=== PATIENT | male | born 1985 | race Caucasian/White ===

== ENCOUNTER 2018-04-15 12:59 | Observation (INO) | payer BC ==
[2018-04-15] MEDS ORDERED: SODIUM CHLORIDE 0.9% 1,000 ML IV STA ×2 (13:25)
[2018-04-15] MEDS ORDERED: ASPIRIN 81 MG PO STA (13:25)
--- NOTE | 2018-04-15 13:28 | ED ---
Chest Pain HPI - General Chief Complaint: Chest Pain Stated Complaint: stroke symptoms Time Seen by Provider: 04/15/18 13:09 Source: patient, RN notes reviewed, old records reviewed Mode of arrival: ambulatory Limitations: no limitations - History of Present Illness Initial Comments: Patient is a 32-year-old male presents emergency stay with chief complaint of intermittent chest pain for the past 3 days. Patient states that he will have the episode chest pain occasionally radiating towards left arm and up towards his head. He states today while he was driving near he started to have some pain within his jaw. Patient states that he felt like his jaw was "fluttering" . Patient states that he has had no previous cardiac history. He does have a history of high blood pressure and hyperlipidemia. He does have a family history of heart disease and is a smoker. Patient states that he has had no chest pain after arriving to emergency department. He does complain of some paresthesias within the left arm. - Related Data Home Medications Medication Instructions Recorded Confirmed Albuterol Sulfate [Proair Hfa] 1 - 2 puff INHALATION RT-Q6H PRN 04/15/18 Atorvastatin [Lipitor] 40 mg PO DAILY 04/15/18 04/15/18 Chlorthalidone 50 mg PO DAILY 04/15/18 04/15/18 Metoprolol Succinate [Toprol XL] 200 mg PO DAILY 04/15/18 04/15/18 Potassium Chloride ER [K-Dur 20] 20 meq PO BID 04/15/18 04/15/18 Allergies Allergy/AdvReac Type Severity Reaction Status Date / Time No Known Allergies Allergy Verified 04/15/18 13:31 Review of Systems ROS Statement: Those systems with pertinent positive or pertinent negative responses have been documented in the HPI. ROS Other: All systems not noted in ROS Statement are negative. EKG Findings - EKG Comments: EKG Findings:: EKG has normal sinus rhythm prolonged QT. EKG noted. Ventricular rate 87 bpm. MS interval is 170 ms. QRS duration 102 ms. QT QTc is 514/618 ms. No evidence of ST elevation or T-wave inversions. No evidence of atrial or ventricular arrhythmias. Past Medical History Past Medical History: Hypertension History of Any Multi-Drug Resistant Organisms: None Reported Past Surgical History: Hernia Repair Additional Past Surgical History / Comment(s): eye surg Past Psychological History: No Psychological Hx Reported Smoking Status: Current every day smoker Past Alcohol Use History: Occasional Past Drug Use History: None Reported General Exam - General Exam Comments Initial Comments: 32-year-old male. Alert and oriented. No significant distress. Limitations: no limitations General appearance: alert, in no apparent distress Head exam: Present: atraumatic, normocephalic, normal inspection Eye exam: Present: normal appearance, PERRL, EOMI. Absent: scleral icterus, conjunctival injection, periorbital swelling ENT exam: Present: normal exam, mucous membranes moist Neck exam: Present: normal inspection. Absent: tenderness, meningismus, lymphadenopathy Respiratory exam: Present: normal lung sounds bilaterally. Absent: respiratory distress, wheezes, rales, rhonchi, stridor Cardiovascular Exam: Present: regular rate, normal rhythm, normal heart sounds. Absent: systolic murmur, diastolic murmur, rubs, gallop, clicks GI/Abdominal exam: Present: soft, normal bowel sounds. Absent: distended, tenderness, guarding, rebound, rigid Extremities exam: Present: normal inspection, full ROM, normal capillary refill. Absent: tenderness, pedal edema, joint swelling, calf tenderness Neurological exam: Present: alert, oriented X3, CN II-XII intact Expanded Patient oriented to: Present: person, place, time Speech: Present: fluid speech Cranial nerves: EOM's Intact: Normal, Facial Sensation: Normal Cerebellar function: Finger to Nose: Normal Upper motor neuron: Pronator Drift: Normal Sensory exam: Upper Extremity Light Touch: Normal, Lower Extremity Light Touch: Normal Motor strength exam: RUE: 5, LUE: 5, RLE: 5, LLE: 5 Eye Response: (4) open spontaneously Motor Response: (6) obeys commands Verbal Response: (5) oriented [place] Total: 15 Psychiatric exam: Present: normal affect, normal mood Skin exam: Present: warm, dry, intact, normal color. 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 He states that he also feels like he's had some episodes of confusion. Patient reports he has no significant headache. This time is nonfocal or lateralizing neurological findings. He complains that his chest pain had resolved upon arrival. His EKG showed no significant changes since a prolonged QT. Laboratory data show evidence of hypokalemia potassium of 2.7. Reports he's had that in the past. Patient was given 40 mg by mouth as well as started on IV potassium. Did give the Patient a by mouth aspirin at this time. Initial troponin is negative. I discussed that would like to admit the Patient for further evaluation regards to the chest pain as well as the episodes of "confusion. We did do a CT of his brain which was negative for any acute process. Patient at this time will be admitted to Dr. Doshi's group. Disposition Clinical Impression: Hypokalemia, Chest pain Disposition: HOME SELF-CARE Condition: Good Is patient prescribed a controlled substance at d/c from ED?: No Referrals: Giovanni Arita DO [Primary Care Provider] - 1-2 days Time of Disposition: 16:49
[2018-04-15 13:58] LABS: Basophils % (A) 0 %; Eosinophils # (A) 0.2 k/uL (0-0.7); Eosinophils % (A) 1 %; Lymphocytes # (A) 1.4 k/uL (1.0-4.8); Lymphocytes % (A) 12 %; MCH 33.8 pg (25.0-35.0); MCHC 36.9 g/dL (31.0-37.0); MCV 91.6 fL (80.0-100.0); Mean Platelet Volume 7.1; Monocytes # (A) 0.4 k/uL (0-1.0); Monocytes % (A) 3 %; Neutrophils # (A) 9.5 k/uL (1.3-7.7); Neutrophils % (A) 83 %; Platelet Count 313 k/uL (150-450); RBC 5.03 m/uL (4.30-5.90); RDW 12.8 % (11.5-15.5); WBC 11.5 k/uL (3.8-10.6)
[2018-04-15 14:08] LABS: ALT 69 U/L (21-72); AST 47 U/L (17-59); Albumin 4.3 g/dL (3.5-5.0); Alkaline Phosphatase 110 U/L (38-126); Anion Gap 14 mmol/L; Blood Urea Nitrogen 15 mg/dL (9-20); Calcium 9.4 mg/dL (8.4-10.2); Carbon Dioxide 24 mmol/L (22-30); Chloride 100 mmol/L (98-107); Glucose 159 mg/dL (74-99); Lipase 61 U/L (23-300); Magnesium 1.7 mg/dL (1.6-2.3); Sodium 138 mmol/L (137-145); Total Bilirubin 0.9 mg/dL (0.2-1.3); Total Protein 7.1 g/dL (6.3-8.2)
[2018-04-15 14:10] LABS: Potassium 2.7 mmol/L (3.5-5.1)
[2018-04-15 14:12] LABS: INR 1.1 (<1.2); Partial Thromboplastin Time 22.5 sec (22.0-30.0); Prothrombin Time 10.5 sec (9.0-12.0)
[2018-04-15 14:19] LABS: Creatine Kinase 253 U/L (55-170)
[2018-04-15] MEDS ORDERED: POTASSIUM CHLORIDE ER 20 MEQ TAB.ER PO STA (14:23)
[2018-04-15 14:32] LABS: Creatine Kinase MB 2.5 ng/mL (0.0-2.4); Troponin I <0.012 ng/mL (0.000-0.034)
--- NOTE | 2018-04-15 14:33 | XR ---
EXAMINATION TYPE: XR chest 2V DATE OF EXAM: 04/15/2018 COMPARISON: Prior chest x-ray 06/09/2013 HISTORY: Chest pain TECHNIQUE: Frontal and lateral views of the chest are obtained. FINDINGS: There are overlying cardiac leads. There is no focal air space opacity, pleural effusion, or pneumothorax seen. The cardiac silhouette size is within normal limits. The osseous structures are intact. IMPRESSION: No acute cardiopulmonary process.
--- NOTE | 2018-04-15 15:07 | CT ---
EXAMINATION TYPE: CT brain wo con DATE OF EXAM: 04/15/2018 COMPARISON: NONE HISTORY: Stroke like symptoms. There is slurred speech and facial drooping today. CT DLP: 994.60 mGycm. Automated Exposure Control for Dose Reduction was Utilized. TECHNIQUE: CT scan of the head is performed without contrast. FINDINGS: There is no acute intracranial hemorrhage, mass effect, or midline shift identified. Epps -white matter differentiation is preserved. Ventricles and sulci are within normal limits in size for patient's age. Nasal septum is deviated to right of midline. There are small mucous retention cysts or polyps in inferior right maxillary sinus. There is mild to minimal mucosal thickening in the left maxillary sinus. There is mild to moderate mucosal thickening involving anterior ethmoid sinuses bila terally. There is mild mucosal thickening involving inferior frontal sinuses bilaterally. The globes are intact bilaterally. IMPRESSION: No acute intracranial hemorrhage or midline shift is seen. Chronic paranasal sinus disea se otherwise unremarkable study. If clinical suspicion for acute stroke persists further investigati on with MRI study may be warranted.
[2018-04-15] MEDS ORDERED: Potassium Replacement Protocol 1 EACH MISC MISCELLANE PRN (16:34)
[2018-04-15] MEDS ORDERED: MAGNESIUM SULFATE-D5W PMX 1 GM in DEXTROSE/WATER 1 100ML.BAG IVPB ONE (16:44)
[2018-04-15] MEDS ORDERED: NITROGLYCERIN SL TABS 0.4 MG TAB SUBLINGUAL PRN (16:49)
[2018-04-15] MEDS: POTASSIUM CHLORIDE 10 MEQ in WATER FOR INJECTION 1 100ML.BAG IVPB SCH ×4 (17:19→22:47)
[2018-04-15] MEDS ORDERED: ALBUTEROL NEBULIZED 2.5 MG/3 ML INHALATION PRN (17:53)
[2018-04-15] MEDS ORDERED: TEMAZEPAM 15 MG CAP PO PRN (17:54)
[2018-04-15] MEDS ORDERED: ACETAMINOPHEN TAB 500 MG TAB PO PRN (17:54)
[2018-04-15] MEDS ORDERED: ALPRAZolam 0.25 MG TAB PO PRN (17:54)
[2018-04-15 18:38] LABS: Creatine Kinase 198 U/L (55-170)
[2018-04-15 18:52] LABS: Creatine Kinase MB 2.1 ng/mL (0.0-2.4); Troponin I <0.012 ng/mL (0.000-0.034)
--- NOTE | 2018-04-15 20:15 | HP ---
HISTORY AND PHYSICAL CHIEF COMPLAINTS: Fluttering of the chest and chest pain. HISTORY OF PRESENT ILLNESS: This 32-year-old gentleman with a past medical history of multiple medical problems, including hypertension, history of hyperlipidemia, being followed by Dr. Giovanni Arita in the outpatient setting, was recently noted to have some hypokalemia , which was replaced, but currently the patient is having fluttering in the chest and also some chest discomfort which was radiating upwards. The patient came to [facility] and was admitted for further evaluation and treatment. EKG showed ST-T changes and QT prolongation. Potassium was found to be 2.7. The patient was admitted for further evaluation. Potassium was given. Aspirin was given. There is no history of any fever, rigor or chills. No history of headache, loss of consciousness, seizures. PAST MEDICAL HISTORY: 1. Hypertension. 2. History of hernia repair. 3. History nicotine dependence. MEDICATIONS: Medications prior to admission include: 1. K-Dur 20 mEq p.o. b.i.d. 2. Toprol-XL 200 mg p.o. daily. 3. Chlorthalidone 50 mg p.o. daily. 4. Lipitor 40 mg p.o. daily. 5. ProAir HFA 1 to 2 puffs q.6 p.r.n. ALLERGIES: NONE. FAMILY HISTORY: No history of heart disease or strokes in the family. SOCIAL HISTORY: History of smoking. History of THC. No history of any alcohol intake. REVIEW OF SYSTEMS: ENT: No diminished hearing. No diminished vision. Otherwise as mentioned earlier. CARDIOVASCULAR SYSTEM: As mentioned earlier. RESPIRATORY SYSTEM: As mentioned earlier. GI: No nausea, vomiting. : No dysuria or retention. NERVOUS SYSTEM: No numbness, weakness. ALLERGY/IMMUNOLOGY: No asthma, hayfever. MUSCULOSKELETAL: As mentioned earlier. HEMATOLOGY/ONCOLOGY: No history of anemia. ENDOCRINE: No history of diabetes, hypothyroidism. CONSTITUTIONAL: As mentioned earlier. DERMATOLOGY: Negative. RHEUMATOLOGY: Negative. PSYCHIATRY: As mentioned earlier. PHYSICAL EXAMINATION: Patient alert and oriented x3. Pulse 74, blood pressure 147/74, respiration 16, temperature 98.3, pulse ox 98% on room air. HEENT: Conjunctivae normal. Oral mucosa moist. NECK: No jugular venous distention. No carotid bruit. No lymph node enlargement. CARDIOVASCULAR SYSTEM: S1, S2 muffled. RESPIRATORY SYSTEM: Breath sounds diminished at the bases. No rhonchi. No crackles. ABDOMEN: Soft, non-tender. No mass palpable. LEGS: No edema. No swelling. NERVOUS SYSTEM: Higher functions as mentioned earlier. Moves all 4 limbs. No focal motor or sensory deficit. LYMPHATICS: No lymph node palpable in neck, axillae or groin. SKIN: No ulcer, rash, bleeding. LABS: WBC 11.2, hemoglobin 17. Sodium 138, potassium 2.7, glucose 159. ASSESSMENT: 1. Chest pain; possible unstable angina. 2. Rule out cardiac arrhythmia. 3. Severe hypokalemia. 4. Rule out QT prolongation. 5. Increased white count. 6. Increased creatine kinase. 7. Obesity with body mass index of 38.8. 8. Hypertension. 9. Hyperlipidemia. 10.History of hernia repair. 11.History of continued ongoing nicotine dependence. RECOMMENDATIONS AND DISCUSSION: In this 32-year-old gentleman who presented with multiple complex medical issues , we will monitor the patient closely, continue the current medications, continue with symptomatic treatment. Otherwise, cardiology consultation. Rule out myocardial infarction. Other than that, there are no medications. We will supplement potassium, repeat potassium. The exact etiology of the hypokalemia is unknown at this time. It could be related to diuretics. We will continue to monitor. Reported QT prolongation could be due to the presence of U waves. Will follow closely with cardio. Avoid QT prolonging meds. We will also get an evaluation by Dr. Ramey for evaluation of the combination hypokalemia and hypertension as well. Two-D echo with Doppler is ordered. Cardiology has been consulted. Otherwise, prognosis is guarded because of multiple complex medical issues. Further recommendations to follow. See orders for further details. MMODL / IJN: [id number] / MTDD
[2018-04-15] MEDS: HEPARIN SODIUM,PORCINE 5,000 UNIT/ML 1 ML VIAL SQ SCH (21:47)
[2018-04-16 01:44] LABS: Creatine Kinase 171 U/L (55-170)
[2018-04-16 01:56] LABS: Creatine Kinase MB 1.7 ng/mL (0.0-2.4); Troponin I <0.012 ng/mL (0.000-0.034)
[2018-04-16] MEDS ORDERED: HYDROcodone/APAP 10-325MG 1 EACH TAB PO ONE (08:44)
[2018-04-16] MEDS ORDERED: ASPIRIN 325 MG TAB PO SCH (09:00)
[2018-04-16] MEDS ORDERED: POTASSIUM CHLORIDE ER 20 MEQ TAB.ER PO SCH (09:00)
[2018-04-16] MEDS ORDERED: METOPROLOL SUCCINATE (ER) 100 MG TAB.ER.24H PO SCH (09:00)
[2018-04-16 09:32] LABS: Appearance,Urine Clear (Clear); Bilirubin,Urine Negative (Negative); Blood,Urine Negative (Negative); Color,Urine Light Yellow; Glucose,Urine (UA) Negative (Negative); Ketones,Urine Negative (Negative); Leukocyte Esterase,Urine Negative (Negative); Nitrite,Urine Negative (Negative); Protein,Urine Negative (Negative); Specific Gravity,Urine 1.008 (1.001-1.035); Urobilinogen,Urine <2.0 mg/dL (<2.0)
[2018-04-16 09:51] LABS: Amphetamine Screen,Urine Not Detected (NotDetected); Barbiturate Screen,Urine Not Detected (NotDetected); Benzodiazepines Screen,Urine Not Detected (NotDetected); Cocaine Screen,Urine Not Detected (NotDetected); Methadone Screen, Urine Not Detected (NotDetected); Opiate Screen,Urine Not Detected (NotDetected); Oxycodone Screen, Urine Not Detected (NotDetected); Phencyclidine Screen,Urine Not Detected (NotDetected); Tricyclic Antidepressant,Urine Not Detected (NotDetected); Urn Cannabinoid Scrn Not Detected (NotDetected)
--- NOTE | 2018-04-16 10:32 | ECHOF ---
Referral Reason:hypertension MEASUREMENTS -------- HEIGHT: 193.0 cm WEIGHT: 151.9 kg BP: 114/67 RVIDd: 3.5 cm (< 3.3) IVSd: 0.9 cm (0.6 - 1.1) LVIDd: 5.2 cm (3.9 - 5.3) LVPWd: 1.4 cm (0.6 - 1.1) IVSs: 1.6 cm LVIDs: 3.3 cm LVPWs: 1.4 cm LA Diam: 3.7 cm (2.7 - 3.8) Ao Diam: 3.7 cm (2.0 - 3.7) AV Cusp: 2.6 cm (1.5 - 2.6) LA Diam: 4.3 cm (2.7 - 3.8) MV EXCURSION: 24.295 mm (> 18.000) MV EF SLOPE: 193 mm/s (70 - 150) EPSS: 0.5 cm MV E Sonny: 0.96 m/s MV DecT: 149 ms MV A Sonny: 0.75 m/s MV E/A Ratio: 1.28 RAP: 5.00 mmHg RVSP: 38.34 mmHg FINDINGS -------- Sinus rhythm. This was a technically adequate study. The left ventricular size is normal. There is mild concentric left ventricular hypertrophy. Overa ll left ventricular systolic function is normal with, an EF between 55 - 60 %. The right ventricle is mild to moderately enlarged. The left atrial size is normal. The right atrial size is normal. The aortic valve is trileaflet, and appears structurally normal. No aortic stenosis or regurgitation. Mild mitral annular calcification present. Mild mitral regurgitation is present. Mild tricuspid regurgitation present. There is mild pulmonary hypertension. The right ventricular systolic pressure, as measured by Doppler, is 38.34mmHg. There is no pulmonic regurgitation present. The aortic root size is normal. There is no pericardial effusion. CONCLUSIONS -------- 1. The left ventricular size is normal. 2. There is mild concentric left ventricular hypertrophy. 3. The right ventricle is mild to moderately enlarged. 4. The left atrial size is normal. 5. The right atrial size is normal. 6. The aortic valve is trileaflet, and appears structurally normal. No aortic stenosis or regurgitati on. 7. Mild mitral annular calcification present. 8. Mild mitral regurgitation is present. 9. Mild tricuspid regurgitation present. 10. There is mild pulmonary hypertension. 11. The right ventricular systolic pressure, as measured by Doppler, is 38.34mmHg. 12. There is no pulmonic regurgitation present. 13. The aortic root size is normal. 14. There is no pericardial effusion. REHANGER: Jody Ross RDCS
[2018-04-16 10:39] LABS: Anion Gap 7 mmol/L; Blood Urea Nitrogen 12 mg/dL (9-20); Calcium 9.1 mg/dL (8.4-10.2); Carbon Dioxide 30 mmol/L (22-30); Chloride 102 mmol/L (98-107); Cholesterol 127 mg/dL (<200); Glucose 95 mg/dL (74-99); HDL Cholesterol 31 mg/dL (40-60); LDL Cholesterol,Calculated 74 mg/dL (0-99); Potassium 3.1 mmol/L (3.5-5.1); Sodium 139 mmol/L (137-145); Triglycerides 111 mg/dL (<150)
[2018-04-16 10:43] LABS: Basophils % (A) 0 %; Eosinophils # (A) 0.3 k/uL (0-0.7); Eosinophils % (A) 3 %; HCT 44.7 % (39.0-53.0); HGB 15.3 gm/dL (13.0-17.5); Lymphocytes # (A) 2.6 k/uL (1.0-4.8); Lymphocytes % (A) 28 %; MCHC 34.3 g/dL (31.0-37.0); MCV 93.2 fL (80.0-100.0); Mean Platelet Volume 6.7; Monocytes # (A) 0.4 k/uL (0-1.0); Monocytes % (A) 4 %; Neutrophils # (A) 5.8 k/uL (1.3-7.7); Neutrophils % (A) 63 %; Platelet Count 250 k/uL (150-450); RBC 4.79 m/uL (4.30-5.90); RDW 13.4 % (11.5-15.5); WBC 9.1 k/uL (3.8-10.6)
--- NOTE | 2018-04-16 11:27 | P.CRDCN ---
History of Present Illness History of present illness: This is a pleasant 32-year-old male past medical history significant for obstructive sleep apnea unable to tolerate CPAP, hypertension, dyslipidemia , chronic nicotine dependence and obesity. 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 We have been asked to see him in consultation for chest pain he c/o pressure in the chest in the mid-sternal region with radiation up into the neck, jaw and top of his head. Feels like a rushing sensation of warmth and pressure. Numbness also noted down the left arm. Symptoms are intermittent with no specific aggravating or alleviating factors. Sometimes come at rest and other times comes while exerting himself at work. Doesn't seem to improve with rest. Recently he has been adjusting his blood pressure medications with his PCP and has been taking oral potassium supplements. Potassium on admission 2.7. He received replacement and repeat this morning is 3.1. He denies any further symptoms of chest pain. Home medications include chlorthalidone 50 mg daily, metoprolol succinate 200 mg daily, potassium supplementation 20 EQ's twice a day and Lipitor 40 mg daily. He is seen and examined resting comfortably in bed by myself and Dr. Fitzpatrick in no acute distress. EKG reveals sinus mechanism with no acute ST or T-wave abnormalities noted. Chest x-ray is negative for an acute cardiopulmonary process. Laboratory data reviewed, WBC admission 11.5 down to 9.1 this morning, hemoglobin 15.3, platelets 250, sodium 139, potassium 3.1, magnesium 1.7, creatinine 0.8, cardiac enzymes negative 3, and T proBNP 33, LDL 74 and HDL 31. Plan: Obtain 2-D echocardiogram and Doppler study to assess cardiac structure and function. Discontinue chlorthalidone and Toprol. Start the patient on Norvasc 5 mg twice a day and Lopressor 50 mg twice a day. Continue potassium supplementation. Advised the patient strongly to attempt to use CPAP machine as recommended. Follow-up in [address] Fitzpatrick. Advised to keep a blood pressure log and bring to his follow-up appointment. Wi'll undergo outpatient stress testing when electrolytes and blood pressure control. Review of Systems At the time of my exam: CONSTITUTIONAL: Denies fever. Denies chills. EYES: Denies blurred vision. Denies vision changes. Denies eye pain. EARS, NOSE, MOUTH & THROAT: Denies headache. Denies sore throat. Denies ear pain. CARDIOVASCULAR: Denies chest pain. Denies shortness of breath. Denies orthopnea. Denies PND. Denies palpitations. RESPIRATORY: Denies cough. GASTROINTESTINAL: Denies abdominal pain. Denies diarrhea. Denies constipation. Denies nausea. Denies vomiting. MUSCULOSKELETAL: Denies myalgias. INTEGUMENTARY: Denies pruitis. Denies rash. NEUROLOGIC: Denies numbness. Denies tingling. Denies weakness. PSYCHIATRIC: Denies anxiety. Denies depression. ENDOCRINE: Denies fatigue. Denies weight change. Denies polydipsia. Denies polyurina. GENITOURINARY: Denies burning, hematuria or urgency with micturation. HEMATOLOGIC: Denies history of anemia. Denies bleeding. Past Medical History Past Medical History: Hyperlipidemia, Hypertension, Pneumonia, Sleep Apnea/CPAP/ BIPAP Additional Past Medical History / Comment(s): 04/15/18 pt wants flu vaccine before going home. seasonal asthma, concussion (at least 1-didnt always go get checked out),"heartburn", uses 02 3liters at night instead of cpap machine. History of Any Multi-Drug Resistant Organisms: None Reported Past Surgical History: Hernia Repair Additional Past Surgical History / Comment(s): 2 eye surg to correct lazy eye, umb hernia sx Past Anesthesia/Blood Transfusion Reactions: No Reported Reaction Smoking Status: Current every day smoker - Past Family History Mother Family Medical History: Asthma, Cancer, Diabetes Mellitus Additional Family Medical History / Comment(s): age 54 breast cancer Father Family Medical History: Hypertension, Thyroid Disorder Medications and Allergies Home Medications Medication Instructions Recorded Confirmed Type Albuterol Sulfate [Proair Hfa] 1 - 2 puff INHALATION RT-Q6H PRN 04/15/18 History Atorvastatin [Lipitor] 40 mg PO DAILY 04/15/18 04/15/18 History Chlorthalidone 50 mg PO DAILY 04/15/18 04/15/18 History Metoprolol Succinate [Toprol XL] 200 mg PO DAILY 04/15/18 04/15/18 History Potassium Chloride ER [K-Dur 20] 20 meq PO BID 04/15/18 04/15/18 History Allergies Allergy/AdvReac Type Severity Reaction Status Date / Time No Known Allergies Allergy Verified 04/15/18 13:31 Physical Exam Vitals: Vital Signs Temp Pulse Pulse Resp BP BP Pulse Ox 04/16/18 04:36 97.7 F 58 L 15 114/67 99 04/16/18 04:00 15 04/15/18 23:56 98.0 F 74 15 132/64 100 04/15/18 23:51 57 L 16 04/15/18 20:10 61 16 04/15/18 19:32 98.0 F 15 148/75 95 04/15/18 17:50 98.3 F 74 16 147/74 04/15/18 17:11 99.1 F 04/15/18 17:09 77 18 127/60 98 04/15/18 14:57 144/75 04/15/18 13:06 69 04/15/18 13:04 98.2 F 100 20 158/83 100 Intake and Output 04/15/18 04/16/18 04/16/18 22:59 06:59 14:59 Intake Total 200 0 Output Total 600 Balance 200 -600 Intake: Oral 200 0 Output: Urine 600 Other: Voiding Method Toilet Toilet Urinal # Voids 2 1 Weight 152.4 kg Blood pressure 114/67 heart rate 58 afebrile maintaining oxygen saturation on room air GENERAL: This is a 32-year-old male in no apparent distress at the time of my examination. Obese. HEENT: Head is atraumatic, normocephalic. Pupils are equal, round. Sclerae anicteric. Conjunctivae are clear. Mucous membranes of the mouth are moist. Neck is supple. There is no jugular venous distention. No carotid bruit is heard. LUNGS: Clear to auscultation no wheezes, rales or rhonchi. No chest wall tenderness is noted on palpation or with deep breathing. HEART: Regular rate and rhythm without murmurs, rubs or gallops. S1 and S2 heard. ABDOMEN: Soft, nontender. Bowel sounds are heard. No organomegaly noted. EXTREMITIES: No evidence of peripheral edema and no calf tenderness noted. VASCULAR: Radial and dorsalis pedis pulses palpated, no evidence of clubbing. NEUROLOGIC: Patient is awake, alert and oriented x3. Results 04/16/18 09:48 04/16/18 09:48 Cardiac Enzymes 04/15/18 04/15/18 04/15/18 Range/Units 13:31 13:31 17:38 AST 47 (17-59) U/L CK-MB (CK-2) 2.5 H 2.1 (0.0-2.4) ng/mL Troponin I <0.012 <0.012 (0.000-0.034) ng/mL 04/16/18 Range/Units 01:02 AST (17-59) U/L CK-MB (CK-2) 1.7 (0.0-2.4) ng/mL Troponin I <0.012 (0.000-0.034) ng/mL Coagulation 04/15/18 Range/Units 13:31 PT 10.5 (9.0-12.0) sec APTT 22.5 (22.0-30.0) sec CBC 04/15/18 Range/Units 13:31 WBC 11.5 H (3.8-10.6) k/uL RBC 5.03 (4.30-5.90) m/uL Hgb 17.0 (13.0-17.5) gm/dL Hct 46.0 (39.0-53.0) % Plt Count 313 (150-450) k/uL Comprehensive Metabolic Panel 04/15/18 Range/Units 13:31 Sodium 138 (137-145) mmol/L Potassium 2.7 L* (3.5-5.1) mmol/L Chloride 100 (98-107) mmol/L Carbon Dioxide 24 (22-30) mmol/L BUN 15 (9-20) mg/dL Creatinine 0.85 (0.66-1.25) mg/dL Glucose 159 H (74-99) mg/dL Calcium 9.4 (8.4-10.2) mg/dL AST 47 (17-59) U/L ALT 69 (21-72) U/L Alkaline Phosphatase 110 (38-126) U/L Total Protein 7.1 (6.3-8.2) g/dL Albumin 4.3 (3.5-5.0) g/dL Current Medications Generic Name Dose Route Start Last Admin Trade Name Freq PRN Reason Stop Dose Admin Acetaminophen 500 mg 04/15/18 17:54 Tylenol Tab PO Q6HR PRN Fever and/ or MILD Pain Albuterol Sulfate 2.5 mg 04/15/18 17:53 Ventolin Nebulized INHALATION RT-Q6H PRN Shortness Of Breath Alprazolam 0.25 mg 04/15/18 17:54 Xanax PO TID PRN Anxiety Aspirin 325 mg 04/16/18 09:00 Aspirin PO DAILY [facility] Atorvastatin Calcium 40 mg 04/16/18 09:00 Lipitor PO DAILY [facility] Heparin Sodium (Porcine) 5,000 unit 04/15/18 21:00 04/15/18 21:47 Heparin SQ 5,000 unit Q12HR DAVID Administration Sodium Chloride 1,000 mls @ 20 mls/hr 04/15/18 13:25 04/15/18 13:56 Saline 0.9% IV 04/16/18 13:24 100 mls/hr .Q24H STA Administration Metoprolol Succinate 200 mg 04/16/18 09:00 Toprol Xl PO DAILY [facility] Miscellaneous Information 1 each 04/15/18 16:34 Potassium Per Protocol MISCELLANE DAILY PRN Per Protocol Protocol Nicotine 1 patch 04/16/18 09:00 Habitrol 14mg/24hr Patch TRANSDERM DAILY [facility] Nitroglycerin 0.4 mg 04/15/18 16:49 Nitrostat SUBLINGUAL Q5M PRN Chest Pain Pantoprazole Sodium 40 mg 04/16/18 07:30 Protonix PO AC-BRKFST [facility] Potassium Chloride 20 meq 04/16/18 09:00 K-Dur 20 PO BID [facility] Temazepam 15 mg 04/15/18 17:54 Restoril PO HS PRN Insomnia Intake and Output 04/15/18 04/16/18 04/16/18 22:59 06:59 14:59 Intake Total 200 0 Output Total 600 Balance 200 -600 Intake: Oral 200 0 Output: Urine 600 Other: Voiding Method Toilet Toilet Urinal # Voids 2 1 Weight 152.4 kg 04/15/18 13:31 04/15/18 13:31 Assessment and Plan Assessment: ASSESSMENT Chest pain, atypical. Acute coronary event has been ruled out with no EKG evidence of ischemia negative cardiac enzymes. Hypokalemia secondary to diuretics Hypertension Dyslipidemia Obesity Obstructive sleep apnea unable to tolerate CPAP PLAN Obtain 2-D echocardiogram and Doppler study to assess cardiac structure and function. Discontinue chlorthalidone and Toprol. Start the patient on Norvasc 5 mg twice a day and Lopressor 50 mg twice a day. Continue potassium supplementation. Advised the patient strongly to attempt to use CPAP machine as recommended. Follow-up in [address] Fitzpatrick. Advised to keep a blood pressure log and bring to his follow-up appointment. Will undergo outpatient stress testing when electrolytes and blood pressure control. May be discharged home later tonight if potassium is normal and blood pressure controlled. Thank you kindly for this consultation. Nurse Practitioner note has been reviewed, I agree with a documented findings and plan of care. Patient was seen and examined.
[2018-04-16] MEDS ORDERED: POTASSIUM CHLORIDE ER 20 MEQ TAB.ER PO STA ×2 (11:28→18:56)
[2018-04-16] MEDS: PANTOPRAZOLE 40 MG TABLET PO SCH (11:39)
[2018-04-16] MEDS: amLODIPine 5 MG TAB PO SCH ×2 (11:39→20:39)
[2018-04-16] MEDS: NICOTINE 14MG/24HR PATCH TRANSDERM SCH (11:39)
[2018-04-16] MEDS: ATORVASTATIN 40 MG TAB PO SCH (11:39)
[2018-04-16] MEDS: HEPARIN SODIUM,PORCINE 5,000 UNIT/ML 1 ML VIAL SQ SCH ×2 (11:39→20:39)
--- NOTE | 2018-04-16 14:40 | PN ---
PROGRESS NOTE DATE OF SERVICE: 04/16/2018 This is a 32-year-old gentleman who was admitted with fluttering of the chest and chest pain, also had severe hypokalemia. A 2D echo with Doppler was done which showed ejection fraction of 55% to 60%. The repeat potassium today is 3.1. Cardiology is also seeing the patient. Recommend outpatient stress test. No chest pain. No palpitations. No fever. PHYSICAL EXAM: Alert and oriented x3. Pulse 61, blood pressure 120/60, respiration 18, temperature 97.8, pulse ox 98% on 3 L. HEENT: Conjunctivae normal. Oral mucosa moist. NECK: No JVD. CARDIOVASCULAR SYSTEM: S1, S2, muffled. RESPIRATION: Breath sounds diminished at the bases, no rhonchi, no crackles. Abdomen is soft, nontender. No mass. LEGS: No edema, no swelling. NERVOUS SYSTEM: No focal deficits. LABS: Lipid panel normal. Potassium 3.1. ASSESSMENT: 1. Chest pain, possible unstable angina. 2. Rule out cardiac arrhythmia. 3. Severe hypokalemia. 4. Increased WBC. 5. Increased creatine kinase. 6. Obesity with body mass index of 38.8. 7. Hypertension. 8. Hyperlipidemia. 9. History of hernia repair. 10.History of continued ongoing nicotine dependence. RECOMMENDATION: Recommend to continue current medication, continue symptomatic treatment. Otherwise at this time, I would recommend potassium supplementation and I would also recommend lytes in the evening also. Otherwise, discussed with Nephrology. Further recommendations to follow. MMODL / IJN: [id number] /
[2018-04-16 19:18] LABS: Potassium 3.2 mmol/L (3.5-5.1)
--- NOTE | 2018-04-16 19:58 | CONS ---
CONSULTATION REASON FOR CONSULT: Hypokalemia and hypertension. HISTORY OF PRESENT ILLNESS: Patient is a 32-year-old male who has a history of hypertension which was diagnosed prior to him being 19 years old. Patient states that his blood pressure had been running on the higher side, even when he was in high school. He has been on the current medications for more than 10 to 12 years. Patient was admitted to the hospital with complaints of chest discomfort and flushing in the head radiating to the top of his head. He denied any significant shortness of breath and he stated that these symptoms came on even when he was not exerting himself. There is no history of excessive sweating, no history of palpitations. Patient was found to have a potassium of 2.7. He is on a good dose of chlorthalidone and Toprol as his antihypertensive regimen prior to admission. Blood pressure when patient came in was 147/74. Highest reading was 158/83. Troponins were not elevated. Patient is being seen by Cardiology and he is scheduled for a stress test. He denies use of any nonsteroidal anti- inflammatory agents. Patient denies any diarrhea, nausea, vomiting or abdominal pain. He states that his grandfather and grandmother had high blood pressure. He is not aware of his siblings having high blood pressure or his mother. He is not sure about the medical history of his father. PAST MEDICAL HISTORY: Significant for: 1. Hypertension. 2. Hyperlipidemia. 3. History of obstructive sleep apnea. PAST SURGICAL HISTORY: Umbilical hernia repair. SOCIAL HISTORY: Positive for smoking. No history of drug abuse or alcohol abuse. REVIEW OF SYSTEMS: As per HPI. Other systems negative. MEDICATIONS: Medications at home prior to admission included: 1. Lipitor. 2. Chlorthalidone 50 mg daily. 3. Metoprolol 200 mg daily. 4. Potassium 20 mEq per day. ALLERGIES: NONE. PHYSICAL EXAMINATION: Patient is comfortable, awake, alert, oriented x3, not in any acute distress. Blood pressure was 122/68, heart rate 61 per minute. He is afebrile. EXAMINATION OF THE HEART: S1, S2. EXAMINATION OF LUNGS: Bilateral breath sounds are heard. ABDOMEN: Soft, non-tender, obese. Examination of lower extremities shows no evidence of edema. HYDROPONICS GROWER exam is grossly intact. LABS: Sodium 139, potassium 3.1, chloride 102, BUN 12, serum creatinine 0.8, hemoglobin 15.3 g/dL. UA is completely unremarkable. ASSESSMENT: 1. Early onset of hypertension with underlying hypokalemia. Need to rule out hyperaldosteronism. The hypokalemia could also be from the high-dose chlorthalidone, but patient states that he has been on the same dose for a long time. There was no GI loss noted in the history for the hypokalemia. We will replace the potassium and a renin aldosterone level will be ordered along with plasma metanephrines. However, the test is more accurately done at the lab at [facility] [place], and therefore patient will be advised to repeat his labs again as outpatient out of [facility]. I will not start him on the Aldactone yet. We will replace the potassium aggressively. Continue with the current antihypertensive regimen, including Norvasc and Lopressor. However, I believe down the road patient will benefit from resuming the diuretics to some degree, perhaps a lower dose, along with NARAYAN inhibitors, and we can wean off the beta blockers. 2. Symptoms of chest pressure and headache, currently scheduled for a stress test tomorrow. 3. Dyslipidemia. PLAN: Replace potassium. Continue current antihypertensive regimen. I will send out renin aldosterone levels along with plasma metanephrine level. Down the road I would like to switch his antihypertensive medications to diuretic and NARAYAN inhibitors and take him off the beta blockers if no indication from cardiology standpoint. In the meantime, if there is evidence of hyperaldosteronism, it which will be treated accordingly. I will hold off on the Aldactone until the test is performed as outpatient. Thank you for this consultation. We will continue to follow the patient with you during his hospitalization. MMMARKL / IJN: [id number] /
[2018-04-16] MEDS: METOPROLOL TARTRATE 50 MG TAB PO SCH (20:39)
[2018-04-17 07:18] LABS: Basophils # (A) 0.1 k/uL (0-0.2); Basophils % (A) 1 %; Eosinophils # (A) 0.4 k/uL (0-0.7); Eosinophils % (A) 5 %; HCT 46.3 % (39.0-53.0); HGB 16.5 gm/dL (13.0-17.5); Lymphocytes # (A) 2.9 k/uL (1.0-4.8); Lymphocytes % (A) 39 %; MCH 33.1 pg (25.0-35.0); MCHC 35.6 g/dL (31.0-37.0); Mean Platelet Volume 6.8; Monocytes # (A) 0.4 k/uL (0-1.0); Monocytes % (A) 5 %; Neutrophils # (A) 3.6 k/uL (1.3-7.7); Neutrophils % (A) 49 %; Platelet Count 285 k/uL (150-450); RBC 4.98 m/uL (4.30-5.90); RDW 12.8 % (11.5-15.5); WBC 7.4 k/uL (3.8-10.6)
[2018-04-17 07:33] LABS: Anion Gap 9 mmol/L; Blood Urea Nitrogen 13 mg/dL (9-20); Calcium 9.5 mg/dL (8.4-10.2); Carbon Dioxide 29 mmol/L (22-30); Chloride 102 mmol/L (98-107); Glucose 95 mg/dL (74-99); Potassium 3.5 mmol/L (3.5-5.1); Sodium 140 mmol/L (137-145)
[2018-04-17] MEDS ORDERED: POTASSIUM CHLORIDE ER 20 MEQ TAB.ER PO STA ×2 (07:53→08:58)
[2018-04-17 07:58] VITALS: RESP 18
[2018-04-17] MEDS: NICOTINE 14MG/24HR PATCH TRANSDERM SCH (08:42)
[2018-04-17] MEDS: METOPROLOL TARTRATE 50 MG TAB PO SCH (08:45)
[2018-04-17] MEDS: ATORVASTATIN 40 MG TAB PO SCH (08:46)
[2018-04-17] MEDS: amLODIPine 5 MG TAB PO SCH (08:46)
[2018-04-17] MEDS: HEPARIN SODIUM,PORCINE 5,000 UNIT/ML 1 ML VIAL SQ SCH (08:46)
[2018-04-17] MEDS: PANTOPRAZOLE 40 MG TABLET PO SCH (08:46)
[2018-04-17 11:47] VITALS: BP 133/77; PULSE 64; TEMP 97.9
--- NOTE | 2018-04-17 13:44 | PN ---
PROGRESS NOTE The patient is seen for followup for hypokalemia and hypertension. His stress test was unremarkable. The patient is actually going home today. He states he is feeling better. His potassium has been replaced. The patient has been started on Lopressor by Cardiology. He remains on Norvasc as well. PHYSICAL EXAMINATION: On examination, blood pressure was 133/77, heart rate of 64 per minute. Patient is afebrile. EXAMINATION OF THE HEART: S1, S2. EXAMINATION OF THE LUNGS: Bilateral breath sounds are heard. Abdomen is soft, nontender. Examination of the lower extremities shows no evidence of edema. COBOL ENGINEER exam is grossly intact. LABS: Sodium of 140, potassium 3.5 today. Hemoglobin was 16.5 g/dL. ASSESSMENT: Hypokalemia, most likely secondary to diuretics, however, need to rule out underlying primary hyperaldosteronism. Continue off of the chlorthalidone for now and may continue with Norvasc and Lopressor. However, I will decrease the dose of Norvasc to 5 mg once a day instead of b.i.d. The patient should monitor his blood pressures at home and if his pressure is high then he can resume the 5 mg b.i.d. dosing of the Norvasc. In the meantime, the aldosterone level is pending. We will follow up on this as outpatient and I will see the patient back for followup in about 1 week's time. LEVONL / STEWARTN: [id number] /
--- NOTE | 2018-04-17 13:59 | PN ---
PROGRESS NOTE This is a 32-year-old obese gentleman with a history of probable sleep apnea syndrome, came in with hypokalemia secondary to chlorthalidone administration. His blood pressure control is excellent. His potassium level is 3.5 today. We are giving additional 20 mEq, increase activity and he can be discharged with the understanding I will see him in the office in 2 weeks and I explained to him the importance of being compliant with CPAP and he is going to try and be more compliant with this. He can be discharged later on today on the current medical regimen with optimal BP control. MMODL / IJN: [id number] /
--- NOTE | 2018-04-18 10:51 | DS ---
DISCHARGE SUMMARY DATE OF SERVICE: 04/17/2018 FINAL DIAGNOSES: 1. Chest pain, possible unstable angina. 2. Rule out cardiac arrhythmia. 3. Severe hypokalemia. 4. Increased WBC. 5. Increase creatine kinase. 6. Obesity with body mass index 38.8. 7. Hypertension. 8. Hyperlipidemia. 9. History of hernia repair. 10.History of continued ongoing nicotine dependence. DISCHARGE DISPOSITION: The patient will be discharged in stable condition with guarded prognosis. HISTORY OF PRESENT ILLNESS: This 32-year-old gentleman with the past medical history of multiple medical problems admitted with fluttering in the chest and severe hypokalemia. The patient was treated in conjunction with Cardiology and nephrology. The patient improved significantly. Potassium improved to 3.5. Cardiology recommended outpatient evaluation. The telemetry did not show an active arrhythmias. On exam, vitals are stable. CARDIOVASCULAR: S1, S2 muffled. ABDOMEN: Soft. NERVOUS SYSTEM: No focal deficits. DISCHARGE ADVICE: 1. Diet is cardiac. 2. Activity limited until followup. 3. Follow up with Dr. Arita in 2 to 3 days. 4. Follow up with Dr. Ramey in one week. 5. Follow up with Dr. Johnny Fitzpatrick as recommended. Medications are: 1. ProAir HFA p.r.n. 2. Lipitor 40 mg p.o. daily. 3. Norvasc 5 mg p.o. daily. 4. Lopressor 50 mg p.o. b.i.d. 5. Habitrol 14 daily. 6. Protonix 40 mg daily. Once again, the patient will be discharged in stable condition with guarded prognosis. MMODL / IJN: [id number] /
[2018-04-21 19:38] LABS: Metanephrine, Free <25 pg/mL (< OR = 57); Normetanephrine, Free 43 pg/mL (< OR = 148); Total, Free (MN + NMN) 43 pg/mL (< OR = 205)
== END 2018-04-17 13:37 | disposition home or self-care (01) ==
LOC: EC 12:59 → 3OBS 16:43
PROVIDERS: ADMIT Hospitalist; ATTEND Hospitalist
DX: R07.89 Other chest pain (principal); E87.6 Hypokalemia; D72.829 Elevated white blood cell count, unspecified; R74.8 Abnormal levels of other serum enzymes; E66.9 Obesity, unspecified; Z68.38 Body mass index [BMI] 38.0-38.9, adult; I10 Essential (primary) hypertension; E78.5 Hyperlipidemia, unspecified; F17.200 Nicotine dependence, unspecified, uncomplicated; I49.8 Other specified cardiac arrhythmias; Z79.899 Other long term (current) drug therapy; R94.31 Abnormal electrocardiogram [ECG] [EKG]; G47.33 Obstructive sleep apnea (adult) (pediatric); R20.0 Anesthesia of skin; Z87.01 Personal history of pneumonia (recurrent); Z99.81 Dependence on supplemental oxygen; Z80.3 Family history of malignant neoplasm of breast; J45.909 Unspecified asthma, uncomplicated; Z83.3 Family history of diabetes mellitus; Z82.49 Family history of ischemic heart disease and other diseases of the circulatory system; Z83.49 Family history of other endocrine, nutritional and metabolic diseases; T50.2X5A Adverse effect of carbonic-anhydrase inhibitors, benzothiadiazides and other diuretics, initial encounter; R68.84 Jaw pain; R20.2 Paresthesia of skin
CPT/HCPCS: 99285; 96365 ×2; 96367 ×2; 96361 ×2; 96366 ×2; 96372 ×3; 36415; 93005; 93306; 83835; 83880; 80051; 80061; 80053; 80048 ×2; 82533; 82088; 82550 ×2; 82553 ×2; 84244; 83690; 83735; 84443; 84484 ×2; 85025 ×3; 85610; 85730; 81003; 80306; 71046; 70450; G0378 ×3; J1644 ×3; J3475; J3480

== ENCOUNTER → 2023-02-25 | Outpatient (CLI) | payer BC ==
--- NOTE | 2023-02-26 07:31 | US ---
EXAMINATION TYPE: US thyroid st tissue head/neck DATE OF EXAM: 02/25/2023 COMPARISON: NONE CLINICAL INDICATION: Male, 37 years old with history of R94.6 ABNORMAL RESULTS OF THYROID; Abnormal l abs GLAND SIZE: Right Lobe: 6.7 x 2.4 x 3.0 cm Overall Parenchyma: heterogenous Left Lobe: 6.0 x 2.1 x 2.4 cm Overall Parenchyma: heterogenous Isthmus Thickness: 0.53 cm NODULES RIGHT: # of nodules measured on right: 0 LEFT: # of nodules measured on left: 0 ISTHMUS: # of nodules measured in the isthmus: 0 Bilateral neck scanned, no evidence of lymphadenopathy. Diffusely heterogenous throughout entire thyroid with hypervascularity and thyromegaly present. IMPRESSION: Diffuse glandular enlargement and heterogeneity without distinct solid or cystic nodule.
== END | disposition home or self-care (01) ==
LOC: RADUSWWP 16:12
PROVIDERS: ATTEND Family Medicine
DX: E01.0 Iodine-deficiency related diffuse (endemic) goiter (principal); R94.6 Abnormal results of thyroid function studies
CPT/HCPCS: 76536